=== PATIENT | female | born 1955 | race African-American/Black ===

== ENCOUNTER 2023-02-17 18:28 | Emergency (ER) | payer MEDICARE, MEDICAID ==
[~2023-02-17] VITALS: Ht 160 cm; Wt 93.0 kg
[~2023-02-17 18:28] MED LIST: ATEN50TA PO; ATOR40TA70 PO; LEVO125T8 PO; LEVO137T2 PO; LOSA50TA41 PO; METF-873 MT; ZOLP10TA2 PO
[2023-02-17] MEDS ORDERED: ONDANSETRON HCL 4MG/2ML INJ IV STA (19:13)
[2023-02-17] MEDS ORDERED: SODIUM CHLORIDE 0.9% 1,000 ML IV ONE (19:15)
[2023-02-17] MEDS ORDERED: METHYLPREDNISOLONE SOD SUCC 125MG/2ML (ACT-O-VIAL) IV STA (19:36)
[2023-02-17] MEDS ORDERED: ALBUTEROL (0.083%) 2.5MG/3ML NEB HHN STA (19:36)
[2023-02-17] MEDS ORDERED: IPRATROPIUM BROMIDE (0.02%) 0.5MG/2.5ML NEB HHN STA (19:36)
[2023-02-17 19:55] LABS: BASOPHILS % 0.3 % (0.0-2.0); DIFFERENTIAL COMMENT 0; EOSINOPHILS % 1.4 % (0.0-5.0); HEMATOCRIT. 34.8 % (36.0-48.0); HEMOGLOBIN. 11.6 g/dL (12.0-16.0); MEAN CORPUSCULAR HEMOGLOBIN 33.3 pg (28.0-32.0); MEAN CORPUSCULAR HGB CONC 33.2 g/dL (31.0-37.0); MEAN CORPUSCULAR VOLUME 100.1 fL (81.0-99.0); MEAN PLATELET VOLUME 6.5 fl (7.4-10.4); MONOCYTES % 11.1 % (2.0-8.0); NEUTROPHILS % 75.2 % (40.0-76.0); PLATELET 266 x1000/uL (130-400); RED BLOOD CELL COUNT 3.48 mill/uL (4.2-5.4); RED CELL DISTRIBUTION WIDTH 13.2 % (11.6-14.6); WHITE BLOOD COUNT 9.9 x1000/uL (4.5-11.0)
[2023-02-17 20:10] VITALS: PULSE 93; RESP 22; O2SAT 98
[2023-02-17 20:12] LABS: PROTHROMBIN TIME 11.1 sec (9.6-11.0)
[2023-02-17 20:24] LABS: ALANINE AMINOTRANSFERASE 15 IU/L (10-49); ASPARTATE AMINOTRANSFERASE 23 IU/L (<34); BILIRUBIN TOTAL 0.3 mg/dL (0.1-1.0); CALCIUM 8.8 mg/dL (8.7-10.4); CARBON DIOXIDE 22 mEq/L (21-32); CHLORIDE 95 mEq/L (98-107); CREATININE 0.8 mg/dL (0.6-1.0); GLUCOSE 138 mg/dL (70-105); POTASSIUM 3.5 mEq/L (3.5-5.1); PROTEIN TOTAL 7.6 g/dL (6.0-8.3); SODIUM 127 mEq/L (136-145); UREA NITROGEN BLOOD 6 mg/dL (9-23)
[2023-02-17 20:25] LABS: TROPONIN I HIGH SENSITIVITY < 4 ng/L (3.0-34)
[2023-02-17] MEDS ORDERED: OXYMETAZOLINE HCL NASAL SPRAY 15ML BOTHNSTRLS SCH (21:45)
[2023-02-17 21:46] LABS: TROPONIN I HIGH SENSITIVITY < 4 ng/L (3.0-34)
[2023-02-17] MEDS ORDERED: ALBUTEROL (0.083%) 2.5MG/3ML NEB HHN ONE (22:15)
[2023-02-17] MEDS ORDERED: PREDNISONE 20MG TABLET PO NR (22:45)
[2023-02-18] VITALS: BP 142/82; PULSE 104; RESP 20
[2023-02-18 00:53] LABS: GLUCOSE URINE NEGATIVE (NEGATIVE); KETONES URINE TRACE (NEGATIVE)
[2023-02-18] MEDS ORDERED: P20 MT (01:05)
[2023-02-18] MEDS ORDERED: ALBU6.7H15 INH (01:05)
[2023-02-18] MEDS ORDERED: OXYM30SP26 BOTHNSTRLS (01:07)
[2023-02-18 02:03] LABS: CLARITY URINE CLEAR (CLEAR); COLOR URINE YELLOW (YELLOW); NITRITE URINE NEGATIVE (NEGATIVE); OCCULT BLOOD URINE NEGATIVE (NEGATIVE); PH URINE 5.5 (4.5-8.0); PROTEIN URINE NEGATIVE (NEGATIVE); SPECIFIC GRAVITY URINE 1.007 (1.005-1.030)
[2023-02-18 02:04] LABS: LEUKOCYTE ESTERASE URINE NEGATIVE (NEGATIVE); UROBILINOGEN URINE 0.2 E.U./dL (0.2-1.0)
== END 2023-02-18 03:00 | disposition home or self-care (01) ==
LOC: ER 18:28
DX: B34.8 Other viral infections of unspecified site (principal); J45.901 Unspecified asthma with (acute) exacerbation; I25.10 Atherosclerotic heart disease of native coronary artery without angina pectoris; E11.9 Type 2 diabetes mellitus without complications; I10 Essential (primary) hypertension; Z86.73 Personal history of transient ischemic attack (TIA), and cerebral infarction without residual deficits; J45.909 Unspecified asthma, uncomplicated; Z20.822 Contact with and (suspected) exposure to COVID-19
CPT/HCPCS: 99285; 96374; 71045; 96361; 96375; 87426; 80053; 83880; 83605; 85025; 85610; 87040; 84484; 87804 ×2; 36415; 82803; 93005; 94644; 81003; J2930; J2405; J7030; J7512; 94640

== ENCOUNTER 2023-03-02 18:52 | Emergency (ER) | payer MEDICARE, MEDICAID ==
[~2023-03-02] VITALS: Ht 160 cm; Wt 93.0 kg
[~2023-03-02 18:52] MED LIST changes: +ALBU6.7H15 INH; +OXYM30SP26 BOTHNSTRLS; +P20 MT
[2023-03-02 19:28] LABS: BASOPHILS % 0.9 % (0.0-2.0); DIFFERENTIAL COMMENT 0; EOSINOPHILS % 2.1 % (0.0-5.0); HEMATOCRIT. 30.9 % (36.0-48.0); HEMOGLOBIN. 10.2 g/dL (12.0-16.0); LYMPHOCYTES % 25.3 % (20.0-50.0); MEAN CORPUSCULAR HEMOGLOBIN 33.1 pg (28.0-32.0); MEAN CORPUSCULAR VOLUME 100.5 fL (81.0-99.0); NEUTROPHILS % 59.7 % (40.0-76.0); PLATELET 458 x1000/uL (130-400); RED BLOOD CELL COUNT 3.07 mill/uL (4.2-5.4); RED CELL DISTRIBUTION WIDTH 13.3 % (11.6-14.6); WHITE BLOOD COUNT 9.3 x1000/uL (4.5-11.0)
[2023-03-02 19:41] LABS: ALANINE AMINOTRANSFERASE 14 IU/L (10-49); ALBUMIN 3.8 g/dL (3.2-4.8); ASPARTATE AMINOTRANSFERASE 15 IU/L (<34); BILIRUBIN TOTAL 0.3 mg/dL (0.1-1.0); CALCIUM 8.4 mg/dL (8.7-10.4); CARBON DIOXIDE 20 mEq/L (21-32); CHLORIDE 107 mEq/L (98-107); CREATININE 0.8 mg/dL (0.6-1.0); GLUCOSE 154 mg/dL (70-105); POTASSIUM 3.6 mEq/L (3.5-5.1); SODIUM 137 mEq/L (136-145); UREA NITROGEN BLOOD 8 mg/dL (9-23)
[2023-03-02] MEDS ORDERED: NITROGLYCERIN 0.4MG TABLET SL SL PRN (19:45)
[2023-03-02] MEDS ORDERED: ASPIRIN 81MG TABLET PO ONE (19:45)
[2023-03-02 19:47] LABS: TROPONIN I HIGH SENSITIVITY < 4 ng/L (3.0-34)
[2023-03-02 19:55] VITALS: BP 129/86; TEMP 98.2
[2023-03-02] MEDS ORDERED: ACETAMINOPHEN 325MG TABLET PO ONE (20:00)
[2023-03-02 20:46] LABS: PARTIAL THROMBOPLASTIN TIME 27.9 sec (23.4-31.0); PROTHROMBIN TIME 10.4 sec (9.6-11.0)
[2023-03-02] MEDS ORDERED: ALBUTEROL (0.083%) 2.5MG/3ML NEB HHN STA (22:35)
[2023-03-02 23:28] LABS: TROPONIN I HIGH SENSITIVITY < 4 ng/L (3.0-34)
[2023-03-02 23:43] VITALS: PULSE 85; RESP 12; O2SAT 99
[2023-03-02] MEDS ORDERED: IOHEXOL-350 100 ML BOTTLE ONE (23:48)
[2023-03-03] MEDS ORDERED: AZIT250T MT (00:13)
[2023-03-03] MEDS ORDERED: ALBU6.7H15 INH (00:13)
== END 2023-03-03 00:33 | disposition home or self-care (01) ==
LOC: ER 18:52
DX: R07.89 Other chest pain (principal); J20.9 Acute bronchitis, unspecified; I10 Essential (primary) hypertension; E11.9 Type 2 diabetes mellitus without complications; J45.909 Unspecified asthma, uncomplicated; Z20.822 Contact with and (suspected) exposure to COVID-19; Z88.0 Allergy status to penicillin; Z86.59 Personal history of other mental and behavioral disorders; Z86.73 Personal history of transient ischemic attack (TIA), and cerebral infarction without residual deficits
CPT/HCPCS: 99285; 93970; 71275; 71045; 87426; 80053; 83880; 85025; 85379; 85610; 85730; 84484; 87804 ×2; 94640; 93005; 36415; Q9967